=== PATIENT | female | born 1995 | race Caucasian/White ===

== ENCOUNTER 2019-03-10 15:25 | Outpatient (CLI) | payer OTHER ==
[2019-03-10] MEDS ORDERED: PRENATAL TABLE1 EAC1 PO (15:54)
== END 2019-03-11 10:48 | disposition home or self-care (01) ==
LOC: OBS/DEL 15:25
DX: O13.2 Gestational [pregnancy-induced] hypertension without significant proteinuria, second trimester (principal); O26.842 Uterine size-date discrepancy, second trimester

== ENCOUNTER 2019-05-15 16:28 | Inpatient (IN) | payer OTHER ==
[~2019-05-15] VITALS: Ht 172.7 cm; Wt 106.6 kg
[~2019-05-15 16:28] MED LIST: PRENATAL TABLE1 EAC1 PO
[2019-05-15] MEDS ORDERED: COLD & FLU SEV1 EACH PO (20:05)
[2019-05-15] MEDS ORDERED: OBSTETRIX DHA1 EACH PO (20:05)
[2019-05-18] MEDS ORDERED: ZITHROMAX500 MG PO (08:03)
[2019-05-18] MEDS ORDERED: MUCINEX600 MG PO (08:03)
[2019-05-18] MEDS ORDERED: FLONASE16 GM NASAL (08:03)
== END 2019-05-18 10:29 | disposition home or self-care (01) | DRG 831 ==
LOC: OBS/DEL 16:28 → LDR 19:02 → OBS/DEL 19:02 → LDR 19:49 → OB/GYN 05-16 17:16
PROVIDERS: ADMIT Obstetrics & Gynecology
PROC: 8E0ZXY6 Isolation (ICD-10-PCS; principal; 2019-05-15)
PROC: 4A1HXCZ Monitoring of Products of Conception, Cardiac Rate, External Approach (ICD-10-PCS; 2019-05-16)
DX: O99.513 Diseases of the respiratory system complicating pregnancy, third trimester (principal); J15.7 Pneumonia due to Mycoplasma pneumoniae

== ENCOUNTER 2019-07-07 05:37 | Inpatient (IN) | payer OTHER ==
[~2019-07-07] VITALS: Ht 162.6 cm; Wt 112.0 kg
[~2019-07-07 05:37] MED LIST changes: +COLD & FLU SEV1 EACH PO; +FLONASE16 GM NASAL; +MUCINEX600 MG PO; +OBSTETRIX DHA1 EACH PO; +ZITHROMAX500 MG PO
== END 2019-07-09 10:58 | disposition home or self-care (01) | DRG 807 ==
LOC: OB/GYN 05:37 → LDR 05:37 → OB/GYN 15:33
PROVIDERS: ADMIT Obstetrics & Gynecology
PROC: 0HQ9XZZ Repair Perineum Skin, External Approach (ICD-10-PCS; principal; 2019-07-07)
PROC: 10E0XZZ Delivery of Products of Conception, External Approach (ICD-10-PCS; 2019-07-07)
PROC: 3E033VJ Introduction of Other Hormone into Peripheral Vein, Percutaneous Approach (ICD-10-PCS; 2019-07-07)
PROC: 4A1HXFZ Monitoring of Products of Conception, Cardiac Rhythm, External Approach (ICD-10-PCS; 2019-07-07)
PROC: 3E0P7VZ Introduction of Hormone into Female Reproductive, Via Natural or Artificial Opening (ICD-10-PCS; 2019-07-07)
DX: O70.0 First degree perineal laceration during delivery (principal); Z37.0 Single live birth; Z3A.39 39 weeks gestation of pregnancy